=== PATIENT | male | born 1940 ===

== ENCOUNTER 2017-12-31 11:13 | Emergency (ER) | payer MEDICARE ==
[2017-12-31 11:13] VITALS: BMI 29.0
[2017-12-31 11:21] VITALS: PULSE 76; RESP 20
[2017-12-31 11:40] VITALS: BP 120/70; TEMP 97.8; O2SAT 98
--- NOTE | 2017-12-31 12:26 | ED PDOC ---
Lower Extremity Pain/Injury Chief Complaint (Provider): send by Podiatry to remove cast History Per: Patient History/Exam Limitations: no limitations Additional Complaint(s): 77 yo ,m, PMhx/o DM,HTN, HLD, displaced right fibular fracture s/p closed reduction with manipulation under anesthesia 12/04 presents to ED send by Podiatry for cast removal. Patient was seen by podiatry this morning and was advised to come to ED for cast removal. Patient denies foot swelling, pain, fever, chest pain, palpitation, SOB, n,v,d,abd pain, polyuria, polydipsia. Pt reports has been using crutch since cast placement and has been wearing weight over his right foot lateral side. After removal of cast, superficial ulcer 1.5 cm noted lateral side of foot. Podiatry: Dr Cesar Steve PMD: Dr Sandy. last visit 3 months ago. <Veronica Yuen - Last Filed: 12/31/17 13:45> <Manohar Garza - Last Filed: 12/31/17 14:08> Time Seen by Provider: 12/31/17 11:47 Chief Complaint (Nursing): Lower Extremity Problem/Injury Supervising Attending Note - Supervising Attending Note The Documented history was done by the: Physician [employer] Watch Hands Painter The documented physical exam was done by the: Physician [employer] Watch Hands Painter The documented procedures were done by the: Physician Clock And Watch Hands Painter - Attestation: I have personally seen and examined this patient.: Yes I have fully participated in the care of the patient.: Yes I have reviewed all pertinent clinical information, including history, physical exam and plan: Yes - Notes: Notes:: Cast removal. No pain. <Manohar Garza - Last Filed: 12/31/17 14:08> Past Medical History Vital Signs: Last Vital Signs Temp 97.8 F 12/31/17 11:38 Pulse 76 12/31/17 11:38 Resp 20 12/31/17 11:38 BP 120/70 12/31/17 11:38 Pulse Ox 98 12/31/17 11:38 - Medical History PMH: Diabetes, Fractures (RIGHT Fibula), HTN, Hypercholesterolemia Denies: Chronic Kidney Disease - Surgical History Surgical History: Hernia Repair (Inguinal,) - Immunization History Hx Tetanus Toxoid Vaccination: No Hx Influenza Vaccination: No Hx Pneumococcal Vaccination: No <KathyVeronica lee - Last Filed: 12/31/17 13:45> Vital Signs: Last Vital Signs Temp 97.8 F 12/31/17 11:38 Pulse 76 12/31/17 11:38 Resp 20 12/31/17 11:38 BP 120/70 12/31/17 11:38 Pulse Ox 98 12/31/17 13:47 - Family History Family History: States: Unknown Family Hx <GarzaManohar Ananth - Last Filed: 12/31/17 14:08> - Home Medications Home Medications: Ambulatory Orders Medication Instructions Recorded Glimepiride [Amaryl] 4 mg PO DAILY 05/28/17 Lisinopril [Zestril] 1 tab PO DAILY 05/28/17 Metformin HCl [Metformin HCl ER] 1 tab PO BID 05/28/17 traMADol [Ultram] 50 mg PO Q6H #20 tab 11/23/17 Aspirin [Lo-Dose Aspirin EC] 81 mg PO DAILY 12/04/17 Amoxicillin/Clavulanate [Augmentin 1 tab PO TID 10 Days tab 12/31/17 875 MG-125 MG] - Allergies Allergies/Adverse Reactions: Allergies Allergy/AdvReac Type Severity Reaction Status Date / Time No Known Allergies Allergy Verified 11/23/17 10:26 Wells Criteria for PE - Wells Criteria for Pulmonary Embolism Clinical Signs and Symptoms of DVT: No P.E is #1 Diagnosis, or Equally Likely: No Heart Rate >100: No Immobilization at least 3 days;Surgery previous 4 weeks: No Previous, objectively diagnosed PE or DVT: No Hemoptysis: No Malignancy w/treatment within 6 months, or palliative: No Total Score: 0 <KathyVeronica lee - Last Filed: 12/31/17 13:45> Review of Systems Cardiovascular: Negative for: Chest Pain Respiratory: Negative for: Cough, Shortness of Breath Gastrointestinal: Negative for: Vomiting, Diarrhea <Veronica Yuen - Last Filed: 12/31/17 13:45> Physical Exam - Physical Exam Appears: Positive for: Non-toxic, No Acute Distress Head Exam: Positive for: ATRAUMATIC, NORMOCEPHALIC Eye Exam: Positive for: Normal appearance Neck: Positive for: Normal Cardiovascular/Chest: Positive for: Regular Rate, Rhythm. Negative for: Chest Non Tender, Murmur Respiratory: Positive for: Normal Breath Sounds. Negative for: Crackles, Rales , Rhonchi Gastrointestinal/Abdominal: Positive for: Soft. Negative for: Tenderness, Guarding Extremity: Positive for: Capillary Refill (3 sec), Other (Righ leg cast from to 2/3 thigh to toes. removed and found right lateral foot metatarsial side superficial ulcer 1.5 cm, no discharged noted.). Negative for: Pedal Edema, Calf Tenderness <Veronica Yuen - Last Filed: 12/31/17 13:45> - Physical Exam Cardiovascular/Chest: Positive for: Regular Rate, Rhythm Respiratory: Positive for: Normal Breath Sounds <Manohar Garza - Last Filed: 12/31/17 14:08> - ECG O2 Sat by Pulse Oximetry: 98 <Veronica Yuen - Last Filed: 12/31/17 13:45> - Progress ED Course And Treament: 1401: Podiatry saw pt. Stable. Ulcer found on ankle area. Podiatry removed the cast and dressed wound. Want augmentin and dc fu. <Manohar Garza Ananth - Last Filed: 12/31/17 14:08> Medical Decision Making Medical Decision Makin:10 pm Initial impression Displaced right fibular fracture s/p closed reduction with manipulation under anesthesia 12/04 . Right leg cast for removal Plan Podiatry consulted: Right leg cast removed and righ lateral foot ulcer found. -Abx Augmentin x 10 days <Veronica Yuen - Last Filed: 12/31/17 13:45> Disposition <Veronica Yuen - Last Filed: 12/31/17 13:45> - Patient ED Disposition Is Patient to be Admitted: No Counseled Patient/Family Regarding: Studies Performed, Diagnosis, Need For Followup, Rx Given - Disposition Disposition: Routine/Home Disposition Time: 14:04 <Manohar Garza - Last Filed: 12/31/17 14:08> - Clinical Impression Clinical Impression: Ankle pain, Ulcer - Disposition Referrals: Podiatry Clinic [Outside] - 01/01/18 [facility] [Outside] - 01/01/18 Condition: STABLE Additional Instructions: Return if not better in 3 days. Prescriptions: Amoxicillin/Clavulanate [Augmentin 875 MG-125 MG] 1 tab PO TID 10 Days tab Instructions: Pressure Sores, Muscle and Bone Pain (DC) Print Language: TURKMEN
--- NOTE | 2017-12-31 13:25 | CP.PCM.CON ---
History of Present Illness - History of Present Illness History of Present Illness: 77 year old male patient with PMHx of DM, HTN, HLD was seen and evaluated in the ED for displaced right fibular fracture s/p closed reduction with manipulation with an above knee cast. Patient was sent from Dr. Steve's office for a cast removal. Patient denies of any pain to his feet today. Patient denies of any recent F/N/V/C/SOB/CP/headache/diarrhea today. Denies of any other pedal complains at this time. PMHx: DM, HTN, HLD PSHx: Right fibular fracture reduction, hernia repair Allergies: N.K.D.A Review of Systems - Constitutional Constitutional: As Per HPI Past Patient History - Past Medical History & Family History Past Medical History?: Yes - Past Social History Smoking Status: Current Some Days Smoker - CARDIAC Hx Hypercholesterolemia: Yes Hx Hypertension: Yes - PULMONARY Hx Respiratory Disorders: No - NEUROLOGICAL Hx Neurological Disorder: No - HEENT Hx HEENT Problems: No - RENAL Hx Chronic Kidney Disease: No - ENDOCRINE/METABOLIC Hx Endocrine Disorders: Yes Hx Diabetes Mellitus Type 2: Yes - HEMATOLOGICAL/ONCOLOGICAL Hx Blood Disorders: No - INTEGUMENTARY Hx Dermatological Problems: No - MUSCULOSKELETAL/RHEUMATOLOGICAL Hx Fractures: Yes (RIGHT Fibula) - GASTROINTESTINAL Hx Gastrointestinal Disorders: No - GENITOURINARY/GYNECOLOGICAL Hx Genitourinary Disorders: No - PSYCHIATRIC Hx Psychophysiologic Disorder: No Hx Substance Use: No - SURGICAL HISTORY Hx Surgeries: Yes Hx Angiogram: Yes Hx Angioplasty: Yes Hx Herniorrhaphy: Yes - ANESTHESIA Hx Anesthesia: Yes Hx Anesthesia Reactions: No Hx Malignant Hyperthermia: No Meds Allergies/Adverse Reactions: Allergies Allergy/AdvReac Type Severity Reaction Status Date / Time No Known Allergies Allergy Verified 11/23/17 10:26 Physical Exam - Constitutional Appears: Well, Non-toxic, No Acute Distress - Extremities Exam Additional comments: VASC: DP/PT pulses are palpable 2/4 . Cap refill time: < 3 seconds to all digits. Skin temperature warm to warm from proximal to distal. no pitting or non -pitting edema noted on noted DERM: wound measuring approx. 2.5 x 1.5cm x <0.1 cm at the base of the 5th metatarsal on the lateral aspect with no active purulent or serous drainage, no tunneling, no probe to bone, no malodor, very minimal harmony-wound erythema noted not extending proximally, mild maceration noted on the plantar aspect of the right foot NEURO: Epicritic and protective sensation grossly intact ORTHO: mild tenderness on palpation of the ulcerated site - Neurological Exam Neurological exam: Alert, Oriented x3 - Psychiatric Exam Psychiatric exam: Normal Affect, Normal Mood Results - Vital Signs Recent Vital Signs: Last Vital Signs Temp 97.8 F 12/31/17 11:38 Pulse 76 12/31/17 11:38 Resp 20 12/31/17 11:38 BP 120/70 12/31/17 11:38 Pulse Ox 98 12/31/17 12:41 Assessment & Plan - Assessment and Plan (Free Text) Assessment: 77 year old male patient with PMHx of DM, HTN, HLD was evaluated at bedside for cast removal and for incidental wound finding Plan: Patient seen and evaluated at bedside Discussed in details with Dr. Steve Cast removed without an incident Dressing applied to the wound using bacitracin, DSD and posterior splint applied Educated to walk in crutches Augmentin 875 10 days given - educated to complete the course Educated to follow up with Dr. Steve sooner Demonstrated verbal understanding Thank you for the podiatry consult and allowing to take part in patient care - Date & Time Date: 12/31/17 Time: 13:35
== END 2017-12-31 14:28 | disposition home or self-care (01) ==
LOC: H.ER 11:13
DX: Z47.89 Encounter for other orthopedic aftercare (principal); E11.9 Type 2 diabetes mellitus without complications; Z79.84 Long term (current) use of oral hypoglycemic drugs; E78.00 Pure hypercholesterolemia, unspecified; I10 Essential (primary) hypertension